=== PATIENT | male | born 1990 | race Caucasian/White ===

== ENCOUNTER 2018-11-13 20:48 | Emergency (ER) | payer SELFPAY ==
[2018-11-13] MEDS ORDERED: NORMAL SALINE 1000 ML 1,000 ML IV ONE (21:35)
[2018-11-13] MEDS ORDERED: RINGERS SOLUTION,LACTATED 1,000 ML IV PRN (21:35)
[2018-11-13] MEDS ORDERED: IBUPROFEN 800 MG TABLET PO ONE (21:35)
[2018-11-13 22:03] LABS: HEMATOCRIT 41.5 % (37.9-51.0); HEMOGLOBIN 14.8 g/dL (13.5-17.0); MEAN CORPUSCULAR HEMOGLOBIN 31.9 pg (27.0-33.4); MEAN CORPUSCULAR HGB CONC 35.6 g/dL (32.0-36.0); MEAN CORPUSCULAR VOLUME 90 fl (80-97); PLATELET COUNT 212 10^3/uL (150-450); RED BLOOD COUNT 4.63 10^6/uL (4.35-5.55); RED CELL DISTRIBUTION WIDTH 12.8 % (11.5-14.0); WHITE BLOOD COUNT 10.4 10^3/uL (4.0-10.5)
--- NOTE | 2018-11-13 22:16 | RADIOLOGY REPORT (SQ) ---
EXAM DESCRIPTION: XR CHEST 2 VIEWS COMPLETED DATE/TME: 11/13/2018 21:36 CLINICAL HISTORY: 28 years, Male, sob fever COMPARISON: None. NUMBER OF VIEWS: 2 TECHNIQUE: Frontal and lateral views of the chest LIMITATIONS: None. FINDINGS: Heart size is normal. Lungs are clear. No pneumothorax IMPRESSION: Negative chest copyright 2010 [employer]- All Rights Reserved
[2018-11-13 22:20] LABS: A TYPE INFLUENZA AG NEGATIVE (NEGATIVE); B INFLUENZA AG NEGATIVE (NEGATIVE)
[2018-11-13 22:23] LABS: ALANINE AMINOTRANSFERASE 48 U/L (21-72); ALBUMIN 4.4 g/dL (3.5-5.0); ALKALINE PHOSPHATASE 48 U/L (38-126); ANION GAP 11 (5-19); ASPARTATE AMINO TRANSFERASE 39 U/L (17-59); BILIRUBIN,DIRECT 0.4 mg/dL (0.0-0.4); BILIRUBIN,TOTAL 0.6 mg/dL (0.2-1.3); BLOOD UREA NITROGEN 18 mg/dL (7-20); CALCIUM 9.4 mg/dL (8.4-10.2); CARBON DIOXIDE 24 mmol/L (22-30); CHLORIDE 105 mmol/L (98-107); GLUCOSE 113 mg/dL (75-110); POTASSIUM 4.2 mmol/L (3.6-5.0); SODIUM 139.9 mmol/L (137-145); TOTAL PROTEIN 7.3 g/dL (6.3-8.2)
[2018-11-13 22:24] LABS: ABSOLUTE LYMPHOCYTES# (MANUAL) 0.3 10^3/uL (0.5-4.7); ABSOLUTE MONOCYTES # (MANUAL) 0.9 10^3/uL (0.1-1.4); ABSOLUTE NEUTROPHILS# (MANUAL) 9.2 10^3/uL (1.7-8.2); BASOPHILS % (MANUAL) 0 % (0-2); EOSINOPHILS % (MANUAL) 0 % (0-6); LYMPHOCYTES % (MANUAL) 3 % (13-45); MONOCYTES % (MANUAL) 9 % (3-13); PLATELET COMMENT ADEQUATE; SEGMENTED NEUTROPHILS % (MAN) 88 % (42-78); TOTAL CELLS COUNTED 100
--- NOTE | 2018-11-14 00:44 | ER Document Report ---
ED General - General Chief Complaint: Chest Congestion Stated Complaint: COUGH,CONGESTION,FEVER Time Seen by Provider: 11/13/18 21:34 Notes: Patient is a 28-year-old male presents to the emergency department complaining of generalized cough, congestion, body aches for the last 3 days. Patient states today he noticed that he did vomit a total of 3 times non-posttussive and also developed a fever. Patient states the fever was subjective. Patient is denying any diarrhea, abdominal pain, current feeling of nausea, chest pain or shortness of breath. Patient states "I just feel run down." Past medical history: None Medications: None Allergies: None Surgical history: None TRAVEL OUTSIDE OF THE [place] IN LAST 30 DAYS: No - Related Data Allergies/Adverse Reactions: No Known Allergies Allergy (Verified 05/05/14 03:13) Past Medical History - General Information source: Patient - Social History Smoking Status: Never Smoker Family History: Reviewed & Not Pertinent Patient has suicidal ideation: No Patient has homicidal ideation: No Renal/ Medical History: Denies: Hx Peritoneal Dialysis - Immunizations Hx Diphtheria, Pertussis, Tetanus Vaccination: Yes Review of Systems - Review of Systems Constitutional: See HPI EENT: See HPI Cardiovascular: See HPI Respiratory: See HPI Gastrointestinal: See HPI Genitourinary: denies: Burning, Dysuria Male Genitourinary: No symptoms reported Musculoskeletal: See HPI Skin: No symptoms reported Hematologic/Lymphatic: No symptoms reported Neurological/Psychological: No symptoms reported Physical Exam - Vital signs Vitals: Temp Pulse Resp BP Pulse Ox 100.8 F H 109 H 20 128/74 H 98 11/13/18 20:59 11/13/18 20:59 11/13/18 20:59 11/13/18 20:59 11/13/18 20:59 - Notes Notes: GENERAL: Alert, interacts well. No acute distress. HEAD: Normocephalic, atraumatic. EYES: Pupils equal, round, and reactive to light. Extraocular movements intact. ENT: Dry mucosa, tongue midline. Nares patent, TM's intact, nonerythematous, nonbulging. Pharynx within normal limits, no palatal petechiae or exudate noted. NECK: Full range of motion. Supple. Trachea midline. No lymphadenopathy appreciated LUNGS: Clear to auscultation bilaterally, no wheezes, rales, or rhonchi. No respiratory distress. HEART: Tachycardic rate and rhythm. No murmur ABDOMEN: Soft, non-tender. Non-distended. Bowel sounds present in all 4 quadrants. EXTREMITIES: Moves all 4 extremities spontaneously. No edema, normal radial and dorsalis pedis pulses bilaterally. No cyanosis. BACK: no cervical, thoracic, lumbar midline tenderness. No saddle anesthesia, normal distal neurovascular exam. NEUROLOGICAL: Alert and oriented x3. Normal speech. cranial nerves II through XII grossly intact PSYCH: Normal affect, normal mood. SKIN: Warm, dry, normal turgor. No rashes or lesions noted. Course - Re-evaluation Re-evalutation: 11/14/18 00:45 Patient is an otherwise healthy male presents to the emergency department for generalized body aches and fever. Patient's labs show no signs of leukocytosis, no signs of anemia, no signs of electrolyte abnormalities. Patient's flu and rapid strep were both negative in the emergency room. Patient's chest x-ray shows no signs of pneumonia, pneumothorax, rib fracture. Patient was treated with 2 L of fluid in the emergency room to help his dehydration. Patient does note that his mouth was very dry and his urine was "concentrated." Patient denies any dysuria or penile discharge. Patient states after fluids and antibiotics in the emergency department he feels better. Patient stable for discharge at this time. 11/14/18 00:47 Patient is currently denying nausea at this time. He has had no episodes of vomiting since in the emergency room. Discussed sending the patient home with John in case he does get nauseated and vomits again. Patient is agreeable with this plan. 11/14/18 00:47 According to SIRS criteria the pt. is positive, discussed giving the patient another liter of fluid in the emergency room and he wishes to decline. States he will continue to drink fluids at home and would like to be discharged at this time. Patient is stable for discharge. - Vital Signs Vital signs: Temp Pulse Resp BP Pulse Ox 100.8 F H 109 H 20 132/74 H 98 11/13/18 20:59 11/13/18 20:59 11/13/18 22:10 11/13/18 22:10 11/13/18 22:10 - Laboratory Result Diagrams: 11/13/18 21:48 11/13/18 21:48 Laboratory results interpreted by me: 11/13/18 11/13/18 21:48 21:48 Seg Neuts % (Manual) 88 H Lymphocytes % (Manual) 3 L Abs Neuts (Manual) 9.2 H Abs Lymphs (Manual) 0.3 L Glucose 113 H Discharge - Discharge Clinical Impression: Dehydration Fever Qualifiers: Fever type: unspecified Qualified Code(s): R50.9 - Fever, unspecified Condition: Stable Disposition: HOME, SELF-CARE Instructions: Dehydration ([facility]), Fever ([facility]) Additional Instructions: As we discussed you have been seen and treated in the emergency department for your fever, generalized body aches. You should take Tylenol and Motrin for your fevers or body aches at home. Your test results reveal no signs of abnormalities at this time. You need to follow-up with your primary care provid er in the next 24-48 hours. You should stay well-hydrated at home or return to the emergency room for any other concerning symptoms. Prescriptions: Ondansetron [Zofran Odt 4 mg Tablet] 1 - 2 tab PO Q4H PRN #15 tab.rapdis PRN Reason: For Nausea/Vomiting
[2018-11-14 01:45] VITALS: BP 121/66
== END 2018-11-14 01:46 | disposition home or self-care (01) ==
LOC: ER 20:48
DX: E86.0 Dehydration (principal); R50.9 Fever, unspecified; M79.10 Myalgia, unspecified site
CPT/HCPCS: 99284; 96360; 96361; 36415; 87040; 87070; 87880; 85025; 80053; 87804; 71046; J7030; J7120